=== PATIENT | male | born 1950 | race Caucasian/White ===

== ENCOUNTER 2023-12-27 08:18 | Outpatient (CLI) | payer OTHER | END 2023-12-27 08:19 | disposition home or self-care (01) | LOC: LABBT 08:18 | PROVIDERS: ATTEND Thoracic Surgery (Cardiothoracic Vascular Surgery) | DX: Z01.818 Encounter for other preprocedural examination (principal); I25.10 Atherosclerotic heart disease of native coronary artery without angina pectoris | CPT/HCPCS: 71046; 93005; 93010 ==

== ENCOUNTER 2023-12-27 08:30 | Inpatient (IN) | payer OTHER ==
[2023-12-27 11:19] LABS: Hematocrit 39.2 % (38.8-50.0); Hemoglobin 13.2 g/dL (13.5-17.5); Mean Corpuscular HGB CONC 33.7 g/dL (32.0-36.0); Mean Corpuscular Hemoglobin 30.8 pg (27.0-33.0); Mean Corpuscular Volume 91.4 fl (81.2-95.1); Mean Platelet Volume 10.9 fl (7.4-10.4); Platelet Count 216 10x3/uL (150-450); RBC Distribution Width 13.2 % (11.5-14.5); Red Blood Cell (RBC) Count 4.29 10x6/uL (4.32-5.72)
[2023-12-27 11:38] LABS: Anion Gap 16 mmol/L (10-20); BUN (Urea Nitrogen) 31 mg/dL (8.4-25.7); Calc. Creatinine Clearance 0 mL/min (70-130); Calcium 9.5 mg/dL (7.8-10.44); Carbon Dioxide 22 mmol/L (23-31); Chloride 101 mmol/L (98-107); Estimated GFR 68; Glucose 100 mg/dL (83-110); Potassium 4.6 mmol/L (3.5-5.1); Sodium 134 mmol/L (136-145)
[2023-12-29] MEDS ORDERED: EPINEPHrine 1 MG/ML VIAL ONE (06:24)
[2023-12-29] MEDS ORDERED: Dexamethasone 4 mg/ml Vial ONE (06:24)
[2023-12-29] MEDS ORDERED: Albumin 5% 500 ML ONE (06:25)
[2023-12-29] MEDS ORDERED: Bupivacaine PF 0.5% 30 ML VIAL ONE (06:25)
[2023-12-29] MEDS ORDERED: Heparin 10,000 UNITS/1 ML VIAL 30,000 UNITS in Sodium Chloride 0.9% 1,000 ML FS SCH (06:45)
[2023-12-29] MEDS ORDERED: Lidocaine 1% MPF 2 ML VIAL ONE (06:48)
[2023-12-29] MEDS ORDERED: CEFAZOLIN 2 GM VIAL ONE (06:48)
[2023-12-29] MEDS ORDERED: Sodium Chloride 0.9% 100 ML ONE (06:48)
[2023-12-29] MEDS ORDERED: Sodium Chloride 0.9% 250 ML 250 ML ONE (06:56)
[2023-12-29] MEDS ORDERED: ePHEDrine Sulfate 50 MG/10 ML VIAL ONE (06:56)
[2023-12-29] MEDS ORDERED: Fentanyl 250 MCG/5 ML VIAL ONE (06:56)
[2023-12-29] MEDS ORDERED: Lidocaine 2% PF 100 mg/5 ml Syringe ONE ×2 (06:56→07:37)
[2023-12-29] MEDS ORDERED: Rocuronium Bromide 10 MG/ML (10ML VIAL) ONE ×2 (06:56→08:35)
[2023-12-29] MEDS ORDERED: Midazolam HCl 2 mg/2 ml Vial ONE (06:56)
[2023-12-29] MEDS ORDERED: CEFAZOLIN 1 GM VIAL ONE (06:56)
[2023-12-29] MEDS ORDERED: PROPOFOL 20 ML ONE (06:56)
[2023-12-29] MEDS ORDERED: Norepinephrine 4 MG/4 ML VIAL ONE (06:56)
[2023-12-29] MEDS ORDERED: Lidocaine 2% PF 5 ML VIAL ONE (06:56)
[2023-12-29] MEDS ORDERED: PHENYLEPHRINE-NS 100 MCG/ML 10 ML SYRINGE ONE ×3 (06:56→11:12)
[2023-12-29] MEDS ORDERED: Cardioplegic Soln 1,000 ML BAG ONE (07:37)
[2023-12-29] MEDS ORDERED: Papaverine 60 MG/2 ML VIAL ONE (07:37)
[2023-12-29] MEDS ORDERED: Heparin 5,000 UNITS/ML VIAL ONE (07:37)
[2023-12-29] MEDS ORDERED: Magnesium 5 GM/10 ML VIAL ONE (07:37)
[2023-12-29] MEDS ORDERED: Aminocaproic Acid 5 GM/20 ML VIAL ONE (07:37)
[2023-12-29] MEDS ORDERED: Thrombin 5000 UNITS/5 ML VIAL ONE (07:37)
[2023-12-29] MEDS ORDERED: Sodium Bicarb 50 mEq/50 ML VIAL ONE (07:37)
[2023-12-29] MEDS ORDERED: Protamine Sulfate 250 MG/25 ML VIAL ONE (07:37)
[2023-12-29] MEDS ORDERED: Calcium Chloride 1 GM/10 ML Abboject SYRINGE ONE (07:37)
[2023-12-29] MEDS ORDERED: Potassium Chloride 60 mEq (30 mL) VIAL ONE (07:37)
[2023-12-29] MEDS ORDERED: Vancomycin 1 GM VIAL ONE (07:37)
[2023-12-29] MEDS ORDERED: Mannitol 12.5 GM/50 ML ONE (07:37)
[2023-12-29] MEDS ORDERED: Heparin 30,000 units/30 ml VIAL ONE (07:37)
[2023-12-29] MEDS ORDERED: Esmolol 100 MG/10 ML VIAL ONE (07:40)
[2023-12-29] MEDS ORDERED: Hetastarch 6% 500 ML 500 ML IVPB PRN (11:20)
[2023-12-29] MEDS ORDERED: Mag-Al 1200 mg/1200 mg/30 ML UDCUP PO PRN (11:20)
[2023-12-29] MEDS ORDERED: Bisacodyl 10 MG SUPP PR PRN (11:20)
[2023-12-29] MEDS ORDERED: Bisacodyl 5 MG TAB PO PRN (11:20)
[2023-12-29] MEDS ORDERED: Albumin 5% 12.5 GM (250 mL) BOT IVPB PRN (11:20)
[2023-12-29] MEDS ORDERED: traMADol HCl 50 MG TAB PO PRN ×2 (11:20)
[2023-12-29] MEDS ORDERED: Promethazine HCl 25 MG/ML VIAL IM PRN (11:20)
[2023-12-29] MEDS ORDERED: NOREPINEPHRINE 8 MG/250 ML-D5W 250 ML IVPB PRN (11:20)
[2023-12-29] MEDS ORDERED: Ondansetron PF 4 MG/2 ML Vial IVP PRN (11:20)
[2023-12-29] MEDS ORDERED: Guaifenesin DM 100-10/5 ML UDCUP PO PRN (11:20)
[2023-12-29] MEDS ORDERED: Ipratropium/Albuterol 3 ML NEB NEB PRN (11:20)
[2023-12-29] MEDS ORDERED: Morphine 2 MG/ML VIAL SLOW IVP PRN (11:20)
[2023-12-29] MEDS ORDERED: Potassium Chloride 20 MEQ (100 mL) BAG IVPB PRN (11:20)
[2023-12-29] MEDS ORDERED: hydrALAZINE 20 MG/ML VIAL SLOW IVP PRN (11:20)
[2023-12-29] MEDS ORDERED: fentaNYL 50 mcg/mL 1 mL Vial SLOW IVP PRN (11:20)
[2023-12-29] MEDS ORDERED: Glucagon 1 MG/ML KIT SC PRN (11:30)
[2023-12-29] MEDS ORDERED: Dextrose 5% in Water 1,000 ML IV PRN (11:30)
[2023-12-29] MEDS ORDERED: Dextrose 50% Abboject 50 ML SYRINGE SLOW IVP PRN (11:30)
[2023-12-29] MEDS ORDERED: HUMULIN R 100 UNITS in Sodium Chloride 0.9% 100 ML IVPB SCH (11:30)
[2023-12-29 11:37] LABS: Actual Bicarbonate (HCO3a) 20.1 mEq/L (22-28); Base Excess (BEa) -4.6 mEq/L (-2.0 to +3.0); CO2 Tension 35.8 mmHg (35.0-45.0); Calcium, Ionized (arterial) 1.18 mmol/L (1.12-1.30); Hematocrit-ABG 33 % (42.0-52.0); Hemoglobin (Hb) 11.3 g/dL (14.0-18.0); O2 Tension (PaO2), arterial 100.1 mmHg (> 70.0); Potassium - ABG Lab 4.63 mmol/L (3.70-5.30); pH, Arterial 7.368 (7.35-7.45)
[2023-12-29 11:38] LABS: Puncture Site Arterial Line
[2023-12-29] MEDS: fentaNYL 50 mcg/mL 1 mL Vial SLOW IVP PRN (11:41)
[2023-12-29] MEDS: Nitroglycerin 50 MG/250 ML BOT 250 ML IVPB PRN (11:44)
[2023-12-29] MEDS: Ketorolac Tromethamine 30 MG (1 mL) VIAL IVP SCH (11:54)
[2023-12-29 11:57] LABS: #Eosinphils 0.1 thou/uL (0.0-0.7); #Monocytes 1.2 thou/uL (0.11-0.59); %Basophils 0.2 % (0.0-1.0); %Lymphocytes 9.1 % (21.0-51.0); Hematocrit 31.8 % (42.0-52.0); Hemoglobin 10.4 g/dL (14.0-18.0); Mean Corpuscular HGB CONC 32.7 g/dL (32.0-36.0); Mean Corpuscular Volume 94.6 fl (78.0-98.0); Mean Platelet Volume 10.4 fL (7.4-10.4); Platelet Count 140 10x3/uL (130-400); RBC Distribution Width 13.3 % (11.5-14.5); Red Blood Cell (RBC) Count 3.36 mill/uL (4.70-6.10); White Blood Cell (WBC) Count 13.8 10x3/uL (4.8-10.8)
[2023-12-29] MEDS: Magnesium 2 GM/50 ML(in water) 2 GM in Premix 1 BAG IVPB SCH (11:57)
[2023-12-29] MEDS: D5 1/2 NS w/20 mEq KCL 1,000 ML IV SCH (11:58)
[2023-12-29] MEDS: Insulin Regular 300 UNITS/3 ML VIAL SC PRN (12:01)
[2023-12-29 12:11] LABS: Anion Gap 12 mmol/L (10-20); BUN (Urea Nitrogen) 21 mg/dL (8.4-25.7); Calc. Creatinine Clearance 97 mL/min (70-130); Calcium 8.1 mg/dL (7.8-10.44); Carbon Dioxide 20 mmol/L (23-31); Chloride 109 mmol/L (98-107); Estimated GFR 81; Glucose 146 mg/dL (83-110); Potassium 4.7 mmol/L (3.5-5.1); Sodium 136 mmol/L (136-145)
[2023-12-29 12:13] LABS: INR-International Normal Ratio 1.3; Prothrombin Time 15.9 sec (12.0-14.7)
[2023-12-29 12:14] LABS: PTT 37.4 sec (22.9-36.1)
[2023-12-29 15:28] LABS: Actual Bicarbonate (HCO3a) 20.4 mEq/L (22-28); Base Excess (BEa) -4.9 mEq/L (-2.0 to +3.0); CO2 Tension 38.6 mmHg (35.0-45.0); Calcium, Ionized (arterial) 1.18 mmol/L (1.12-1.30); Carboxyhemoglobin (COHb) 0.8 gm% (0.0-3.0); Hematocrit-ABG 36 % (42.0-52.0); Hemoglobin (Hb) 12.1 g/dL (14.0-18.0); O2 Tension (PaO2), arterial 118.8 mmHg (> 70.0); Potassium - ABG Lab 4.59 mmol/L (3.70-5.30)
[2023-12-29 15:31] LABS: Puncture Site Arterial Line
[2023-12-29] MEDS: CEFAZOLIN 2 GM in Sodium Chloride 0.9% 100 ML IVPB SCH (16:01)
[2023-12-29 18:28] LABS: Hematocrit 35.2 % (42.0-52.0); Hemoglobin 11.2 g/dL (14.0-18.0)
[2023-12-29 18:59] LABS: Potassium 5.6 mmol/L (3.5-5.1)
[2023-12-29] MEDS: Famotidine/PF 20 mg/2ml Vial SLOW IVP SCH (21:29)
[2023-12-29] MEDS: Albumin 5% 12.5 GM (250 mL) BOT IVPB PRN (23:20)
[2023-12-30 04:21] LABS: #Monocytes 1.4 thou/uL (0.11-0.59); %Basophils 0.3 % (0.0-1.0); %Eosinophils 0.1 % (0.0-10.0); %Lymphocytes 8.2 % (21.0-51.0); %Monocytes 13.9 % (0.0-10.0); %Neutrophils 77.1 % (42.0-75.0); Hematocrit 30.1 % (42.0-52.0); Hemoglobin 9.5 g/dL (14.0-18.0); Mean Corpuscular HGB CONC 31.6 g/dL (32.0-36.0); Mean Corpuscular Hemoglobin 30.3 pg (27.0-31.0); Mean Corpuscular Volume 95.9 fl (78.0-98.0); Platelet Count 145 10x3/uL (130-400); RBC Distribution Width 13.7 % (11.5-14.5); Red Blood Cell (RBC) Count 3.14 mill/uL (4.70-6.10); White Blood Cell (WBC) Count 10.3 10x3/uL (4.8-10.8)
[2023-12-30 04:44] LABS: Anion Gap 11 mmol/L (10-20); BUN (Urea Nitrogen) 28 mg/dL (8.4-25.7); Calc. Creatinine Clearance 81 mL/min (70-130); Calcium 8.3 mg/dL (7.8-10.44); Carbon Dioxide 20 mmol/L (23-31); Chloride 109 mmol/L (98-107); Estimated GFR 65; Glucose 132 mg/dL (83-110); Potassium 4.7 mmol/L (3.5-5.1); Sodium 135 mmol/L (136-145)
[2023-12-30] MEDS ORDERED: LUTEIN 20 MG PO SCH (09:00)
[2023-12-30] MEDS: Cholecalciferol 1,000 UNITS (25 MCG) TAB PO SCH (09:33)
[2023-12-30] MEDS: Rosuvastatin 20 MG TAB PO SCH (09:33)
[2023-12-30] MEDS: Magnesium 2 GM/50 ML(in water) 2 GM in Premix 1 BAG IVPB SCH (09:33)
[2023-12-30] MEDS: Aspirin 325 MG TAB PO SCH (09:33)
[2023-12-30] MEDS: Allopurinol 100 MG TAB PO SCH (09:33)
[2023-12-30] MEDS: Vitamin E 400 UNITS CAP PO SCH (09:45)
[2023-12-30] MEDS ORDERED: Insulin Glargine 30 UNITS/0.3 ML VIAL SC PRN (11:28)
[2023-12-30] MEDS ORDERED: Artificial Tear Sol 15 ML BOT EA EYE PRN (12:24)
[2023-12-30] MEDS ORDERED: Zolpidem Tartrate 5 MG TAB PO PRN (12:24)
[2023-12-30] MEDS ORDERED: Mineral Oil ENEMA PR PRN (12:24)
[2023-12-30] MEDS ORDERED: Nitroglycerin 0.4 MG TAB (25 Tab Bottle) SL PRN (12:24)
[2023-12-30] MEDS ORDERED: Insulin Regular 300 UNITS/3 ML VIAL SC PRN (13:45)
[2023-12-31 05:07] LABS: #Eosinphils 0.6 thou/uL (0.0-0.7); #Monocytes 1.6 thou/uL (0.11-0.59); #Neutrophils 7.6 thou/uL (1.40-6.50); %Basophils 0.3 % (0.0-1.0); %Lymphocytes 13.9 % (21.0-51.0); %Monocytes 13.8 % (0.0-10.0); %Neutrophils 66.6 % (42.0-75.0); Hematocrit 29.3 % (42.0-52.0); Hemoglobin 9.2 g/dL (14.0-18.0); Mean Corpuscular HGB CONC 31.4 g/dL (32.0-36.0); Mean Corpuscular Hemoglobin 30.7 pg (27.0-31.0); Mean Corpuscular Volume 97.7 fl (78.0-98.0); Mean Platelet Volume 10.3 fL (7.4-10.4); Platelet Count 121 10x3/uL (130-400); RBC Distribution Width 13.9 % (11.5-14.5); White Blood Cell (WBC) Count 11.3 10x3/uL (4.8-10.8)
[2023-12-31 05:54] LABS: Anion Gap 12 mmol/L (10-20); BUN (Urea Nitrogen) 35 mg/dL (8.4-25.7); Calc. Creatinine Clearance 77 mL/min (70-130); Calcium 8.1 mg/dL (7.8-10.44); Carbon Dioxide 22 mmol/L (23-31); Chloride 107 mmol/L (98-107); Estimated GFR 62; Glucose 110 mg/dL (83-110); Potassium 4.5 mmol/L (3.5-5.1); Sodium 136 mmol/L (136-145)
[2023-12-31] MEDS: Metoprolol Tartrate 25 MG TAB PO SCH (11:53)
[2024-01-01 05:10] LABS: #Eosinphils 0.6 thou/uL (0.0-0.7); #Monocytes 1.7 thou/uL (0.11-0.59); #Neutrophils 8.4 thou/uL (1.40-6.50); %Basophils 0.3 % (0.0-1.0); %Eosinophils 4.8 % (0.0-10.0); %Lymphocytes 14.9 % (21.0-51.0); %Monocytes 13.2 % (0.0-10.0); Hematocrit 28.2 % (42.0-52.0); Hemoglobin 8.9 g/dL (14.0-18.0); Mean Corpuscular HGB CONC 31.6 g/dL (32.0-36.0); Mean Corpuscular Hemoglobin 30.4 pg (27.0-31.0); Mean Corpuscular Volume 96.2 fl (78.0-98.0); Mean Platelet Volume 10.8 fL (7.4-10.4); Platelet Count 129 10x3/uL (130-400); RBC Distribution Width 13.8 % (11.5-14.5); Red Blood Cell (RBC) Count 2.93 mill/uL (4.70-6.10); White Blood Cell (WBC) Count 12.7 10x3/uL (4.8-10.8)
[2024-01-01 05:56] LABS: Anion Gap 12 mmol/L (10-20); BUN (Urea Nitrogen) 43 mg/dL (8.4-25.7); Calc. Creatinine Clearance 0 mL/min (70-130); Calcium 8.1 mg/dL (7.8-10.44); Carbon Dioxide 20 mmol/L (23-31); Chloride 104 mmol/L (98-107); Estimated GFR 54; Glucose 106 mg/dL (83-110); Potassium 4.8 mmol/L (3.5-5.1); Sodium 131 mmol/L (136-145)
[2024-01-01 14:19] VITALS: BMI 32.5
[2024-01-02] MEDS: Acetaminophen 325 MG TAB PO PRN (00:04)
[2024-01-02 10:48] VITALS: BP 121/60; TEMP 98.1
== END 2024-01-02 09:27 | disposition home or self-care (01) | DRG 236 ==
LOC: SURG A 12-29 05:51 → CCU 12-29 11:23 → 2NO 01-01 14:46
PROVIDERS: ADMIT Thoracic Surgery (Cardiothoracic Vascular Surgery); ATTEND Thoracic Surgery (Cardiothoracic Vascular Surgery)
PROC: 02100Z9 Bypass Coronary Artery, One Artery from Left Internal Mammary, Open Approach (ICD-10-PCS; principal; 2023-12-29)
PROC: 021209W Bypass Coronary Artery, Three Arteries from Aorta with Autologous Venous Tissue, Open Approach (ICD-10-PCS; 2023-12-29)
PROC: 06BP4ZZ Excision of Right Saphenous Vein, Percutaneous Endoscopic Approach (ICD-10-PCS; 2023-12-29)
PROC: 5A1221Z Performance of Cardiac Output, Continuous (ICD-10-PCS; 2023-12-29)
PROC: 02L70CK Occlusion of Left Atrial Appendage with Extraluminal Device, Open Approach (ICD-10-PCS; 2023-12-29)
PROC: 4A133R1 Monitoring of Arterial Saturation, Peripheral, Percutaneous Approach (ICD-10-PCS; 2023-12-29)
PROC: 3E033XZ Introduction of Vasopressor into Peripheral Vein, Percutaneous Approach (ICD-10-PCS; 2023-12-29)
PROC: 30233J1 Transfusion of Nonautologous Serum Albumin into Peripheral Vein, Percutaneous Approach (ICD-10-PCS; 2023-12-29)
DX: I25.10 Atherosclerotic heart disease of native coronary artery without angina pectoris (principal); I10 Essential (primary) hypertension; I95.1 Orthostatic hypotension; E66.01 Morbid (severe) obesity due to excess calories; M19.90 Unspecified osteoarthritis, unspecified site; E78.00 Pure hypercholesterolemia, unspecified; M10.9 Gout, unspecified; J30.2 Other seasonal allergic rhinitis; Z96.619 Presence of unspecified artificial shoulder joint; G56.02 Carpal tunnel syndrome, left upper limb; Z68.32 Body mass index [BMI] 32.0-32.9, adult; Z85.820 Personal history of malignant melanoma of skin; Z87.891 Personal history of nicotine dependence; Z98.890 Other specified postprocedural states; Z90.49 Acquired absence of other specified parts of digestive tract; Z82.49 Family history of ischemic heart disease and other diseases of the circulatory system; Z83.3 Family history of diabetes mellitus; Z88.0 Allergy status to penicillin; Z88.8 Allergy status to other drugs, medicaments and biological substances
CPT/HCPCS: 36415; 36416; 36430; 71045; 80048; 82805; 85025; 85027; 85610; 85730; 86850; 86870; 86880; 86900; 86901; 86905; 86922; 93005; 93010; 93798; 94002; 94150; A4311; A4648; C1751; C1889; J0171; J0665; J0690; J1100; J1642; J1644; J1815; J1885; J2001; J2150; J2250; J2440; J2704; J2720; J3010; J3370; J3475; J3480; J3490; J7050; P9045; S0017; S0028

== ENCOUNTER 2024-04-26 07:53 | Outpatient (CLI) | payer OTHER ==
[2024-04-26 09:44] LABS: Hematocrit 40.5 % (38.8-50.0); Hemoglobin 12.8 g/dL (13.5-17.5); Mean Corpuscular HGB CONC 31.6 g/dL (32.0-36.0); Mean Corpuscular Hemoglobin 27.9 pg (27.0-33.0); Mean Corpuscular Volume 88.4 fL (81.2-95.1); Mean Platelet Volume 11.1 fL (7.4-10.4); Platelet Count 218 10x3/uL (150-450); RBC Distribution Width 16.8 % (11.5-14.5); Red Blood Cell (RBC) Count 4.58 10x6/uL (4.32-5.72); White Blood Cell (WBC) Count 10.1 10x3/uL (3.5-10.5)
[2024-04-26 10:03] LABS: Anion Gap 14 mmol/L (10-20); BUN (Urea Nitrogen) 40 mg/dL (8.4-25.7); Calc. Creatinine Clearance 0 mL/min (70-130); Calcium 9.5 mg/dL (7.8-10.44); Carbon Dioxide 23 mmol/L (23-31); Chloride 105 mmol/L (98-107); Estimated GFR 56; Glucose 96 mg/dL (83-110); Potassium 5.5 mmol/L (3.5-5.1); Sodium 136 mmol/L (136-145)
== END 2024-04-26 07:54 | disposition home or self-care (01) ==
LOC: LABBT 07:53
PROVIDERS: ATTEND Thoracic Surgery (Cardiothoracic Vascular Surgery)
DX: Z01.812 Encounter for preprocedural laboratory examination (principal); I65.22 Occlusion and stenosis of left carotid artery
CPT/HCPCS: 80048; 85027

== ENCOUNTER 2024-04-26 12:30 | Inpatient (IN) | payer OTHER ==
[2024-04-29 12:56] VITALS: BMI 30.5
[2024-04-29 16:28] VITALS: BP 104/60
[2024-04-30 05:28] VITALS: TEMP 98.9
== END 2024-04-30 09:42 | disposition home or self-care (01) | DRG 39 ==
LOC: SURG A 04-29 06:19 → CCU 04-29 12:33
PROVIDERS: ADMIT Thoracic Surgery (Cardiothoracic Vascular Surgery); ATTEND Thoracic Surgery (Cardiothoracic Vascular Surgery)
PROC: 03CL0ZZ Extirpation of Matter from Left Internal Carotid Artery, Open Approach (ICD-10-PCS; principal; 2024-04-29)
PROC: 03UL0KZ Supplement Left Internal Carotid Artery with Nonautologous Tissue Substitute, Open Approach (ICD-10-PCS; 2024-04-29)
DX: I65.22 Occlusion and stenosis of left carotid artery (principal); I10 Essential (primary) hypertension; E78.5 Hyperlipidemia, unspecified; I25.10 Atherosclerotic heart disease of native coronary artery without angina pectoris; M19.90 Unspecified osteoarthritis, unspecified site; M10.9 Gout, unspecified; Z95.1 Presence of aortocoronary bypass graft; Z85.828 Personal history of other malignant neoplasm of skin; Z87.891 Personal history of nicotine dependence
CPT/HCPCS: 94640; C1768; J0171; J0360; J0665; J1100; J1642; J1644; J2001; J2405; J2704; J2720; J3490; J7620; Q0162